=== PATIENT | male | born 1955 | race Caucasian/White ===

== ENCOUNTER → 2017-07-31 14:16 | Outpatient (CLI) | payer MEDICAID ==
[2014-03-09 12:50] VITALS: BMI 29.8
[~2017-07-31 14:16] MED LIST: ALDACTONE25 MG PO; ALEVE220 MG PO; BACTRIM DS TABL1 TAB PO; COREG 3.1253.125 MG PO; GLUCOPHAGE500 MG PO; HYDROCHLOROTH12.5 M1 PO; HYDROCODONE-APA1 TAB PO; K-DUR20 MEQ PO; LASIX40 MG PO; LIBRIUM25 MG PO; NEURONTIN 300300 MG PO; PRILOSEC20 MG PO; TUMS500 MG PO; ZESTORETIC 10/11 TAB PO; ZYLOPRIM100 MG PO
== END | disposition home or self-care (01) ==
LOC: D.US 14:16
DX: I73.9 Peripheral vascular disease, unspecified (principal)

== ENCOUNTER → 2017-08-31 08:45 | Outpatient (CLI) | payer MEDICAID ==
[2014-03-09 12:50] VITALS: BMI 29.8
== END | disposition home or self-care (01) ==
LOC: D.CT 08:45
DX: M79.605 Pain in left leg (principal); M79.604 Pain in right leg; I73.9 Peripheral vascular disease, unspecified